=== PATIENT | female | born 1995 | race American Indian/Alaskan Native ===

== ENCOUNTER 2019-01-27 21:48 | Outpatient (CLI) | payer MEDICAID ==
[2019-01-27 23:19] VITALS: BP 122/69
== END 2019-01-28 00:05 | disposition home or self-care (01) ==
LOC: TRG 21:48
PROVIDERS: ATTEND Obstetrics & Gynecology
DX: O47.1 False labor at or after 37 completed weeks of gestation (principal); O99.513 Diseases of the respiratory system complicating pregnancy, third trimester; J45.909 Unspecified asthma, uncomplicated; Z3A.38 38 weeks gestation of pregnancy
CPT/HCPCS: 59025

== ENCOUNTER 2019-01-29 10:44 | Inpatient (IN) | payer MEDICAID ==
[2019-01-29] MEDS ORDERED: MINERAL OIL PO PRN (11:36)
[2019-01-29] MEDS ORDERED: BRETHINE IVP PRN (11:36)
[2019-01-29] MEDS ORDERED: ZOFRAN IV PRN (11:36)
[2019-01-29] MEDS ORDERED: XYLOCAINE 2% INFILTRATI ONE (11:36)
[2019-01-29] MEDS ORDERED: BRETHINE SUB-Q PRN (11:36)
--- NOTE | 2019-01-29 11:36 | History and Physical Report ---
History of Present Illness Date of examination: 01/29/19 Date of admission: 01/29/2019 Chief complaint: my water broke History of present illness: Pt presents c/o waking up with fluid leaking at about 1006am today. Pt confirmed to be SROM'd by charge nurse in triage. Pt fluid appears to be clear. Some contractions are noted EDC Calculations LMP: 02/04/2019 EDC Confirmation: 02/04/2019 Gestational Age: 17 2/7 weeks Past History : 1 Term Births: 0 Premature Births: 0 Living Children: 0 Para: 0 Mult. Births: 0 Prev : 0 Prev. attempt? 0 Aborta: 0 Elect. Ab: 0 Spont. Ab: 0 Ectopics: 0 Past Medical History: Negative Past Medical History Past Surgical History: negative Past Medical History Anesthesia Complications: negative Anemia: negative Autoimmune Disorder: negative Bleeding Disorder: negative Blood Transfusions: negative Breast Disease: negative Diabetes: negative Heart Disease: negative Hypertension: negative Hepatitis/Liver Disease: negative Kidney Disease/UTI: negative Neurologic/Epilepsy/Migraines: negative Phlebitis/Varicosities: negative Psychiatric: negative Pulmonary Disease/Asthma: negative Thyroid Disease: negative Hospitalizations: negative Surgery (Non-insurance service representative): negative Abnormal PAP: negative Family Hx: mother - breast cancer Social Hx: single no ETOH/Drugs/smoking Infection History Hx of STD: none HIV Risk Eval: no Hepatitis B Risk Eval: low risk Personal hx. of genital herpes: no Partner hx. of genital herpes: no Rash, Viral, or Febrile illness since last LMP? no Varicella/Chicken Pox Status: Immunized Genetic History Congenital Heart Defect: Mom: no Dad: no Nita Disease: Mom: no Dad: no Thalassemia Mom: no Dad: no Neural Tube Defect Mom: yes Dad: no Comments: sister born with spina bifida Down's Syndrome Mom: no Dad: no Dennis-Sachs Mom: no Dad: no Sickle Cell Disease/Trait Mom: no Dad: no Hemophilia Mom: no Dad: no Muscular Dystrophy Mom: no Dad: no Cystic Fibrosis Mom: no Dad: no Haroldo Chorea Mom: no Dad: no Mental Retardation Mom: no Dad: no Fragile X Mom: no Dad: no Other Genetic/Chromosomal Disorder Mom: no Dad: no Child w/other defect Mom: no Dad: no Enviromental Exposures Xray Exposure: no Medication, drug, or alcohol use since LMP: no Chemical/Other Exposure: no Exposure to Cat Liter: yes Hx of Parvovirus (Fifth Disease): no Occupational Exposure to Children: none Comments: stopped changing cat litter Active Medications (reviewed today): None Current Allergies (reviewed today): No known allergies Past History Past Medical History: other (see hpi) Past Surgical History: other (see hpi) CONSULTANT History: other (see hpi) Family/Genetic History: other (see hpi) - Obstetrical History Expected Date of Delivery: 02/04/19 Actual Gestation: 39 Week(s) 1 Day(s) : 1 Medications and Allergies Allergies Allergy/AdvReac Type Severity Reaction Status Date / Time No Known Allergies Allergy Unverified 01/27/19 23:40 Home Medications Medication Instructions Recorded Confirmed Last Taken Type Vit-Fe Fumar-FA [ 1 tab PO QDAY 01/27/19 01/27/19 1 Week Ago History Vitamin] ~01/20/19 Review of Systems All systems: negative - Vital Signs Vital signs: Vital Signs Pulse BP 82 129/83 01/29/19 10:59 01/29/19 10:59 Temp Pulse Resp BP Pulse Ox 97.5 F L 82 129/83 01/29/19 11:25 01/29/19 10:59 01/29/19 10:59 - Physical Exam Cardiovascular: Normal S1, Normal S2 Lungs: Positive: Clear to auscultation, Normal air movement Abdomen: Positive: normal appearance, soft. Negative: distention Genitourinary (Female): Positive: normal external genitalia, normal perenium. Negative: perineal/vulvar lesions - Obstetrical FHR: category 1 Cervical Dilatation: 0.5 (post; no gross fluid seen on perineum but pt has pad on. padding is moist) Cervical Effacement Percentage: 50 station: -2 Uterine Contraction Pattern: Regular Uterine Tone Measurement Phase: Resting Uterine Contraction Intensity: Mild Results All other labs normal. Assessment and Plan - Patient Problems (1) 39 weeks gestation of Current Visit: Yes Status: Acute (2) SROM (spontaneous rupture of membranes) Current Visit: Yes Status: Acute Plan to address problem: -will start serial IOL at pt is not in labor at this time. -plan of care d/w pt and her mother all questions were addressed and answered. -sono to check for presentation as the cx is post and the exam was limited by pt discomfort.
[2019-01-29] MEDS ORDERED: PITOCin/NS 30 UNIT/500ML 30 UNITS/500 ML BAG IV SCH (12:00)
[2019-01-29] MEDS ORDERED: PITOCin/NS 20 UNIT/1000ML DRIP 20 UNITS/1,000 ML BAG IV SCH (12:00)
[2019-01-29 12:01] LABS: Hematocrit 33.4 % (30.3-42.9); Hemoglobin 11.4 gm/dl (10.1-14.3); Mean Corpuscular HGB Conc 34 % (30-34); Mean Corpuscular Volume 83 fl (79-97); Platelet Count 131 K/mm3 (140-440); Red Blood Count 4.02 M/mm3 (3.65-5.03); Red Cell Distribution Width 15.8 % (13.2-15.2)
--- NOTE | 2019-01-29 12:43 | Ultrasound Report ---
Limited OB ultrasound INDICATION: Ultrasound is performed to evaluate for position only FINDINGS: There is a single intrauterine . The fetus is in a cephalic presentation. he art rate is 139 bpm. Signer Name: Ankit Tao MD Signed: 01/29/2019 12:38 PM Workstation Name: [id number]
[2019-01-29] MEDS: SUBLIMAZE IV PRN ×3 (14:28→21:35)
[2019-01-29] MEDS: LACTATED RINGERS 1,000 ML IV SCH ×2 (14:59→22:04)
[2019-01-29] MEDS: PITOCin/NS 30 UNIT/500ML 30 UNITS/500 ML BAG IV SCH ×2 (18:23→19:30)
--- NOTE | 2019-01-29 18:59 | Event Note ---
Date: 01/29/19 Informed by charged nurse that this pt pitocin was not able to be started as ordered due to staffing issues and will be started at this time. I advised that pt is allowed to have dinner and then resume her clear diet. Will start pitocin as ordered at this time.
[2019-01-30] MEDS: SUBLIMAZE IV PRN (02:00)
[2019-01-30] MEDS ORDERED: NARCAN 2 MG/2 ML IV PRN (04:51)
[2019-01-30] MEDS ORDERED: fentaNYL-BUPIV 2 MCG/ML-0.125% 200 MCG/100 ML BAG EPIDURAL SCH (05:00)
--- NOTE | 2019-01-30 05:21 | Anesthesia Consultation ---
Anesthesia Consult and Med Hx Date of service: 01/30/19 - Airway Anesthetic Teeth Evaluation: Good ROM Head & Neck: Adequate Mental/Hyoid Distance: Adequate Mallampati Class: Class II Intubation Access Assessment: Probably Good - Pulmonary Exam CTA: Yes - Cardiac Exam Cardiac Exam: RRR - Pre-Operative Health Status ASA Pre-Surgery Classification: ASA3 Proposed Anesthetic Plan: Epidural - Pulmonary Hx Asthma: Yes (last breathing tx years ago) COPD: No Hx Pneumonia: No - Cardiovascular System Hx Hypertension: No - Central Nervous System Hx Seizures: No Hx Psychiatric Problems: No - Endocrine Hx Renal Disease: No Hx End Stage Renal Disease: No Hx Hypothyroidism: No Hx Hyperthyroidism: No - Hematic Hx Anemia: No Hx Sickle Cell Disease: No - Other Systems Hx Alcohol Use: No
--- NOTE | 2019-01-30 05:21 | Anesthesia Day of Surgery ---
Anesthesia Day of Surgery - Day of Surgery Patient Examined: Yes Patient H&P Reviewed: Yes Patient is NPO: No
[2019-01-30] MEDS ORDERED: METHERGINE IM ONE ×2 (05:46→06:02)
[2019-01-30] MEDS ORDERED: TUCKS PAD TP PRN (06:03)
[2019-01-30] MEDS ORDERED: DULCOLAX PR PRN (06:03)
[2019-01-30] MEDS ORDERED: PHENERGAN PR PRN (06:03)
[2019-01-30] MEDS ORDERED: ZOFRAN IV PRN (06:03)
[2019-01-30] MEDS ORDERED: BENADRYL PO PRN (06:03)
[2019-01-30] MEDS ORDERED: LANSINOH TP PRN (06:03)
[2019-01-30] MEDS ORDERED: MILK OF MAGNESIA PO PRN (06:03)
[2019-01-30] MEDS ORDERED: NORCO 5/325 PO PRN (06:03)
[2019-01-30] MEDS ORDERED: TYLENOL PO PRN (06:03)
[2019-01-30] MEDS ORDERED: PHENERGAN PO PRN (06:03)
--- NOTE | 2019-01-30 06:18 | Procedure Note ---
OB Delivery Note - Delivery Date of Delivery: 01/30/19 Manufacturing Engineer Paint: HARRIET JOHNSON Estimated blood loss: 300cc - Vaginal Delivery presentation: vertex Delivery position: OA Intrapartum events: none, mult.variable deceleratio Delivery induction: none Delivery augmentation: pitocin Delivery monitor: external uterine, internal FHT Route of delivery: Delivery placenta: spontaneous Delivery cord: nuchal cord, 3 umbilical vessels Episiotomy: midline Delivery laceration: 2nd degree Delivery repair: vicryl Anesthesia: epidural Delivery comments: live born male over second degree episiotomy CAN X 1 removed. Baby to mom's abdomen skin to skin Placenta and membrane del complete and intact. 3 vessel cord. Several lg clots removed Methergine IM given. 8/9, EBL 300, Wgt 8-4. Episiotomy repaired with 2-0 vicryl usual fashion. Mom and baby remain LDR stable - Infant A at 1 minute: 8 at 5 minutes: 9 Gender: Male (wgt 8-4)
[2019-01-30] MEDS ORDERED: SODIUM CHLORIDE FLUSH SYRINGE 10 ML IV PRN (07:00)
[2019-01-30] MEDS: IBUPROFEN PO SCH ×3 (13:56→23:09)
[2019-01-30 18:43] LABS: Hematocrit 28.3 % (30.3-42.9); Hemoglobin 9.5 gm/dl (10.1-14.3)
[2019-01-31] MEDS: IBUPROFEN PO SCH ×3 (05:28→17:54)
[2019-01-31] MEDS ORDERED: BOOSTRIX IM ONE (06:00)
[2019-01-31] MEDS ORDERED: M-M-R II VACCINE SUB-Q ONE (06:03)
--- NOTE | 2019-01-31 11:26 | Post Anesthesia Evaluation ---
- Post Anesthesia Evaluation Patient Participated: Yes Airway Patent: Yes Stable Respiratory Function: Yes Nausea/Vomiting: No Temp > 96.8F: Yes Pain Manageable: Yes Adequeate Hydration: Yes Anesthesia Complications: No Block Receding Appropriately: Yes Patient on Ventilator: No
--- NOTE | 2019-01-31 12:05 | Progress Note ---
Assessment and Plan - Patient Problems (1) 39 weeks gestation of Current Visit: Yes Status: Resolved (2) SROM (spontaneous rupture of membranes) Current Visit: Yes Status: Resolved (3) Single live Current Visit: Yes Status: Acute Plan to address problem: -routine pp care -d/c home this pm Subjective - Subjective Date of service: 01/31/19 Principal diagnosis: 01/31/19 Interval history: pt doing well stating that she feels great. I d/w d/c to home today or tomorrow and she desires d/c home today. + breasfeeding w/o difficulty. Patient reports: appetite normal, voiding normally, pain well controlled, ambulating normally, no dizzy ambulation Leroy: doing well, nursing well Objective - Vital Signs Latest vital signs: Vital Signs Temp Pulse Resp BP BP Pulse Ox 01/31/19 07:33 97.7 F 69 18 112/55 01/31/19 01:16 98.1 F 84 18 115/70 99 01/30/19 16:39 98.4 F 82 18 120/66 98 Intake and Output 01/30/19 01/31/19 01/31/19 22:59 06:59 14:59 Intake Total 1000 480 480 Balance 1000 480 480 Intake: Oral 1000 120 480 Intake, Free Water 360 Other: Total, Intake Amount 1000 120 480 # Voids Void 3 1 - Exam Breasts: Present: normal Cardiovascular: Present: Normal S1, Normal S2 Lungs: Present: Clear to auscultation, Normal air movement Abdomen: Present: normal appearance, soft, normal bowel sounds. Absent: distention, tenderness, guarding Uterus: Present: normal, firm, fundal height below umbilicus. Absent: bog giness, tenderness Extremities: Present: normal. Absent: tenderness, edema Deep Tendon Reflex Grade: Normal +2 - Labs Labs: Abnormal lab results 01/30/19 Range/Units 18:05 Hgb 9.5 L (10.1-14.3) gm/dl Hct 28.3 L (30.3-42.9) %
--- NOTE | 2019-01-31 12:07 | Discharge Summary ---
Providers - Providers Date of Admission: 01/29/19 11:36 Date of discharge: 01/31/19 Attending physician: CAITY DE Primary care physician: CAITY DE Hospitalization Reason for admission: rupture of membranes Delivery: Procedure details: see delivery note Episiotomy: midline Laceration: none Other procedures: none Discharge diagnosis: IUP at term delivered [place] baby: male Hospital course: Pt had that was not complicated. She had routine pp care. She desires d/c home today. Condition at discharge: Good Disposition: DC-01 TO HOME OR SELFCARE - Discharge Diagnoses (1) 39 weeks gestation of Status: Resolved (2) SROM (spontaneous rupture of membranes) Status: Resolved (3) Single live Status: Acute Plan - Discharge Medications Prescriptions: Lidocain2.5%/Prilocai2.5% [Emla] 2 gm TP ONCE #1 tube - Provider Discharge Summary Activity: no sex for 6 weeks, no heavy lifting 4 weeks, no strenuous exercise Additional instructions: [] Smoking cessation referral if applicable(refer to patient education folder for contact #) [] Refer to [facility]'s [facility] Center Booklet Call your doctor immediately for: * Fever > 100.5 * Heavy vaginal bleeding ( >1 pad per hour) * Severe persistent headache * Shortness of breath * Reddened, hot, painful area to leg or breast * Drainage or odor from incision. * Keep incision clean and dry at all times and follow doctor's instructions regarding bathing/showering CALL OFFICE TO SCHEDULE CIRCUMCISION WITHIN 1-2 WEEKS OF D/C HOME FROM THE HOSPITAL. - Follow up plan Follow up: CAITY DE MD [Primary Care Provider] - 7 Days
[2019-01-31 17:12] VITALS: BP 112/65
== END 2019-01-31 18:40 | disposition home or self-care (01) | DRG 775 ==
LOC: TRG 10:44 → LD 10:52 → TRG 11:36 → LD 11:36 → OB 01-30 09:26
PROVIDERS: ADMIT Obstetrics & Gynecology; ATTEND Obstetrics & Gynecology
PROC: 10E0XZZ Delivery of Products of Conception, External Approach (ICD-10-PCS; principal; 2019-01-30)
PROC: 0KQM0ZZ Repair Perineum Muscle, Open Approach (ICD-10-PCS; 2019-01-30)
PROC: 0W8NXZZ Division of Female Perineum, External Approach (ICD-10-PCS; 2019-01-30)
PROC: 3E0R3BZ Introduction of Anesthetic Agent into Spinal Canal, Percutaneous Approach (ICD-10-PCS; 2019-01-30)
PROC: 00HU33Z Insertion of Infusion Device into Spinal Canal, Percutaneous Approach (ICD-10-PCS; 2019-01-30)
PROC: 3E0234Z Introduction of Serum, Toxoid and Vaccine into Muscle, Percutaneous Approach (ICD-10-PCS; 2019-01-31)
DX: O76 Abnormality in fetal heart rate and rhythm complicating labor and delivery (principal); O69.81X0 Labor and delivery complicated by cord around neck, without compression, not applicable or unspecified; J45.909 Unspecified asthma, uncomplicated; Z80.3 Family history of malignant neoplasm of breast; O99.52 Diseases of the respiratory system complicating childbirth; O70.1 Second degree perineal laceration during delivery; Z3A.39 39 weeks gestation of pregnancy; Z37.0 Single live birth; Z23 Encounter for immunization
CPT/HCPCS: 36415; 59025; 76815; 85014; 85018; 85027; 86592; 86850; 86900; 86901; 90707; G0378; J2210; J2405; J2590; J3010; J7120